=== PATIENT | female | born 1975 | race Caucasian/White ===

== ENCOUNTER → 2017-10-30 | Day surgery (SDC) | payer OTHER | END | disposition home or self-care (01) | LOC: FIMAGING 13:36 | PROVIDERS: ATTEND Internal Medicine Infectious Disease | PROC: 02HV33Z Insertion of Infusion Device into Superior Vena Cava, Percutaneous Approach (ICD-10-PCS; principal; 2017-10-30) | DX: M27.2 Inflammatory conditions of jaws (principal) | CPT/HCPCS: 36569; 77001; C1751 ==

== ENCOUNTER → 2018-07-13 | Outpatient (CLI) | payer OTHER | LOC: FIMAGING 11:39 | PROVIDERS: ATTEND Surgery | DX: J90 Pleural effusion, not elsewhere classified (principal) ==